=== PATIENT | female | born 1985 | race American Indian/Alaskan Native ===

== ENCOUNTER 2017-04-29 13:44 | Outpatient (CLI) | payer OTHER | END 2017-04-29 13:45 | disposition home or self-care (01) | LOC: PF 13:44 | PROVIDERS: ATTEND Internal Medicine | DX: J45.909 Unspecified asthma, uncomplicated (principal); I10 Essential (primary) hypertension; I49.9 Cardiac arrhythmia, unspecified; C56.9 Malignant neoplasm of unspecified ovary; F32.9 Major depressive disorder, single episode, unspecified | CPT/HCPCS: 94010 ==

== ENCOUNTER 2019-04-14 05:19 | Emergency (ER) | payer MEDICAID, OTHER ==
[2019-04-14 05:24] VITALS: BP 153/113
== END 2019-04-14 06:00 | disposition left against medical advice (07) ==
LOC: ED 05:19
DX: J02.9 Acute pharyngitis, unspecified (principal); Z53.21 Procedure and treatment not carried out due to patient leaving prior to being seen by health care provider
CPT/HCPCS: 87116; 87430